=== PATIENT | female | born 1965 | race African-American/Black ===

== ENCOUNTER 2017-02-06 09:13 | Day surgery (SDC) | payer BC ==
[~2017-02-06] VITALS: Ht 166.4 cm; Wt 108.4 kg
[2017-02-06] VITALS (10 sets, daily range): BP systolic 118–136; BP diastolic 60–76; PULSE 70–88; RESP 14–30; Ht 166.4 cm; Wt 108.4 kg
[2017-02-06] MEDS ORDERED: NEOSTIGMINE 3 MG/3 ML SYRINGE ONE (10:38)
[2017-02-06] MEDS ORDERED: LIDOCAINE 2% (SDV) 5 ML INJ ONE (10:38)
[2017-02-06] MEDS ORDERED: PROPOFOL 20 ML ONE (10:38)
[2017-02-06] MEDS ORDERED: MIDAZOLAM 1 MG/ML 2 ML INJ ONE (10:38)
[2017-02-06] MEDS ORDERED: FENTAnyl 50 MCG/ML VIAL ONE (10:38)
[2017-02-06] MEDS ORDERED: GLYCOPYRROLATE 0.4 MG INJ ONE (10:38)
[2017-02-06] MEDS ORDERED: ROCURONIUM 50 MG INJ ONE (10:38)
[2017-02-06] MEDS ORDERED: DEXAMETHASONE 4 MG/ML 1 ML INJ ONE (10:39)
[2017-02-06] MEDS ORDERED: ONDANSETRON 4 MG INJ ONE (10:39)
[2017-02-06] MEDS ORDERED: SUCCINYLCHOLINE CHLORIDE 100 MG/5 ML SYG IV ONE (10:39)
[2017-02-06] MEDS ORDERED: CEFAZOLIN 1 GM INJ ONE (10:40)
--- NOTE | 2017-02-06 10:57 | HPN ---
Date/Time of Note Date/Time of Note DATE: 02/06/17 TIME: 10:56 Interval H&P Admission Note Pt. seen H&P reviewed: No system changes CHARLES GUO DPM February 06, 2017 10:56
[2017-02-06] MEDS ORDERED: OXYCODONE/ACETAMINOPHEN (5/325) TAB PO PRN ×2 (11:00)
[2017-02-06] MEDS ORDERED: hydrALAzine 20 MG INJ IV PRN (11:00)
[2017-02-06] MEDS ORDERED: morphine (1 MG/ML) 10ML SYRINGE IV PRN ×3 (11:00)
[2017-02-06] MEDS ORDERED: HYDROmorphONE (0.2 MG/ML) 10ML SYG IV PRN ×3 (11:00)
[2017-02-06] MEDS ORDERED: LABETALOL HCL 20MG INJ IV PRN (11:00)
[2017-02-06] MEDS ORDERED: EPHEDrine SULFATE 50 MG/5 ML SYG IV PRN (11:00)
[2017-02-06] MEDS ORDERED: ATROPINE 1 MG/10 ML SYRINGE IV PRN (11:00)
[2017-02-06] MEDS ORDERED: MIDAZOLAM 1 MG/ML 2 ML INJ IV PRN (11:00)
[2017-02-06] MEDS ORDERED: MEPERIDINE 25 MG INJ IV PRN (11:00)
[2017-02-06] MEDS ORDERED: ONDANSETRON 4 MG INJ IV PRN (11:00)
[2017-02-06] MEDS ORDERED: DIPHENHYDRAMINE 50 MG INJ IV PRN (11:00)
[2017-02-06] MEDS ORDERED: FENTAnyl 50 MCG/ML VIAL IV PRN ×2 (11:00)
[2017-02-06] MEDS ORDERED: POLYMYXIN/BACITRACIN 1L IRRIG ONE (11:34)
[2017-02-06] MEDS ORDERED: POLYMYXIN/BACITRACIN 1L IRRIG IRR ONE (12:05)
[2017-02-06] MEDS ORDERED: BUPIVACAINE 0.5% (SDV) 30 ML INJ ONE (12:31)
[2017-02-06] MEDS ORDERED: BUPIVACAINE 0.5% (SDV) 30 ML INJ INJ ONE (13:10)
--- NOTE | 2017-02-06 21:49 | RADRPT ---
PROCEDURE: XR Foot. CLINICAL INDICATION: Postsurgical follow-up. TECHNIQUE: Three views of the right foot are available for review. COMPARISON: None available FINDINGS: No acute fracture or dislocation is seen. Cortical screw transfixes the first metatarsal bone and proximal first phalanx. Osteotomy along the medial aspect of the head of the first metatarsal bone, consistent with bunionec tony. Osteotomy of the mid shaft of the proximal right first phalanx is noted. Alignment is anatomic. The joint spaces are maintained. Bony mineralization is normal. The soft tissues are unremarkable. IMPRESSION: 1. Status post bunionectomy of the right first metatarsal head. 2. Status post osteotomy of the proximal right first phalanx. 3. No evidence of fracture, dislocation or hardware failure. RPTAT: HLDM .Jignesh Sierra MD, Date Time Electronically viewed and signed by .Jignesh Sierra MD, on 02/06/2017 21:49 .M/
== END 2017-02-06 15:40 | disposition home or self-care (01) ==
LOC: SDS 09:13
PROVIDERS: ATTEND Podiatrist Foot & Ankle Surgery
DX: M21.611 Bunion of right foot (principal); M20.11 Hallux valgus (acquired), right foot; E66.01 Morbid (severe) obesity due to excess calories; Z68.39 Body mass index [BMI] 39.0-39.9, adult
CPT/HCPCS: 28296; 73630; 84703; J0690; J1100; J2250; J2405; J2710; J3010; J7999

== ENCOUNTER 2017-04-01 05:57 | Day surgery (SDC) | payer BC ==
[~2017-04-01] VITALS: Ht 167.6 cm; Wt 108.2 kg
[2017-04-01] VITALS (15 sets, daily range): BP systolic 93–144; BP diastolic 60–86; PULSE 58–92; RESP 11–24; Ht 167.6 cm; Wt 108.2 kg
[2017-04-01] MEDS ORDERED: CEFAZOLIN 2 GM/50 ML (PMX) 50 ML IVPB SCH (06:00)
[2017-04-01] MEDS ORDERED: POLYMYXIN/BACITRACIN 1L IRRIG ONE (07:09)
[2017-04-01] MEDS ORDERED: MULTI PO (07:11)
[2017-04-01] MEDS ORDERED: CHOL100062 PO (07:11)
[2017-04-01] MEDS ORDERED: PROPOFOL 20 ML ONE (07:33)
[2017-04-01] MEDS ORDERED: MIDAZOLAM 1 MG/ML 2 ML INJ ONE (07:34)
[2017-04-01] MEDS ORDERED: FENTAnyl 50 MCG/ML VIAL ONE (07:34)
--- NOTE | 2017-04-01 07:39 | HPN ---
Date/Time of Note Date/Time of Note DATE: 04/01/17 TIME: 07:38 Interval H&P Admission Note Pt. seen H&P reviewed: No system changes CHARLES GUO DPM Apr 01, 2017 07:39
[2017-04-01] MEDS ORDERED: LIDOCAINE 2% (MDV) 20 ML INJ ONE (07:40)
[2017-04-01] MEDS ORDERED: BUPIVACAINE 0.5% (SDV) 30 ML INJ ONE (07:40)
[2017-04-01] MEDS ORDERED: METOCLOPRAMIDE 10 MG INJ ONE (07:42)
[2017-04-01] MEDS ORDERED: CEFAZOLIN 1 GM INJ ONE (07:46)
--- NOTE | 2017-04-01 08:43 | OPPN ---
Date/Time of Note Date/Time of Note DATE: 04/01/17 TIME: 08:42 Operative Report Preoperative Diagnosis Painful hardware right hallux S/P bunionectomy right foot Postoperative Diagnosis Painful hardware right hallux S/P bunionectomy right foot Operation/Procedure Performed Removal of painful hardware of right hallux Provider: CHARLES GUO DPM Anesthesia: general Estimated blood loss: minimal Specimens NONE Grafts/Implants Screw X1 Complications: None CHARLES GUO DPM Apr 01, 2017 08:43
[2017-04-01] MEDS ORDERED: ONDANSETRON 4 MG INJ IV PRN (09:00)
[2017-04-01] MEDS ORDERED: HYDROmorphONE (0.2 MG/ML) 10ML SYG IV PRN ×3 (09:00)
[2017-04-01] MEDS ORDERED: METOCLOPRAMIDE 10 MG INJ IV PRN (09:00)
[2017-04-01] MEDS ORDERED: KETOROLAC 30 MG INJ IV ONE (09:00)
[2017-04-01] MEDS ORDERED: OXYCODONE/ACETAMINOPHEN (5/325) TAB PO PRN ×2 (09:00)
[2017-04-01] MEDS ORDERED: HYDROCODONE/APAP (10/325) TAB PO PRN (09:00)
--- NOTE | 2017-04-01 14:05 | RADRPT ---
PROCEDURE: Intraoperative imaging of the right first toe with fluoroscopy. CLINICAL INDICATION: Right first toe pain. Intraoperative. TECHNIQUE: Four images of the right first toe were obtained in the operating room with an image in tensifier. No radiologist was in attendance. Fluoroscopy time is 6 seconds. COMPARISON: 02/06/2017 FINDINGS: Images demonstrate removal of the cannulated screw from the right first proximal phalanx. A cannula david screw remains in the right first metatarsal shaft. IMPRESSION: 1. Intraoperative imaging of the lumbar spine. RPTAT: QQ .Rubens Atkins MD, MD Date Time Electronically viewed and signed by .Rubens Atkins MD, MD on 04/01/2017 14:04 .R/
--- NOTE | 2017-04-01 15:45 | RADRPT ---
PROCEDURE: XR Right Foot. CLINICAL INDICATION: Right foot pain. Postop. TECHNIQUE: Three views. Frontal, lateral, and oblique. COMPARISON: 02/06/2017. FINDINGS: Images demonstrate removal of the cannulated screw from the first toe proximal phalanx. A single ca nnulated screw remains in the first metatarsal shaft. There has been osteotomy of the first toe and first metatarsal shaft. Gas is present in the soft tissues at these sites. There is no other fracture or dislocation. The articular surfaces are otherwise intact. There is n o lytic lesion. IMPRESSION: 1. Postoperative changes of the right foot. RPTAT: QQ .Rubens Atkins MD, MD Date Time Electronically viewed and signed by .Rubens Atkins MD, MD on 04/01/2017 15:45 .R/
== END 2017-04-01 10:30 | disposition home or self-care (01) ==
LOC: SDS 05:57
PROVIDERS: ATTEND Podiatrist Foot & Ankle Surgery
DX: T84.84XA Pain due to internal orthopedic prosthetic devices, implants and grafts, initial encounter (principal); Y83.8 Other surgical procedures as the cause of abnormal reaction of the patient, or of later complication, without mention of misadventure at the time of the procedure; Y92.89 Other specified places as the place of occurrence of the external cause
CPT/HCPCS: 20680; 73630; 73660; J0690; J1885; J2250; J2765; J3010; L3260